=== PATIENT | male | born 1970 | race Two or more races ===

== ENCOUNTER 2023-11-12 12:50 | Emergency (ER) | payer MEDICAID ==
[~2023-11-12] VITALS: Ht 172.7 cm; Wt 84.3 kg
[2023-11-12 15:55] VITALS: BP 158/97; PULSE 108; RESP 18; TEMP 97.5; O2SAT 97
[2023-11-12] MEDS ORDERED: IBUP1TAB5 PO (16:10)
[2023-11-12] MEDS ORDERED: CEPH500C PO (16:10)
[2023-11-12] MEDS ORDERED: BACDST PO (16:10)
[2023-11-12] MEDS: cefTRIAXone SOD 1,000 MG VL IM ONE (16:46)
[2023-11-12] MEDS: KETOROLAC TROMETH 60MG/2ML VIAL IM ONE (16:46)
== END 2023-11-12 17:10 | disposition home or self-care (01) ==
LOC: ER 12:50
DX: S70.362A Insect bite (nonvenomous), left thigh, initial encounter (principal); Z79.899 Other long term (current) drug therapy; W57.XXXA Bitten or stung by nonvenomous insect and other nonvenomous arthropods, initial encounter; Y93.89 Activity, other specified; Y92.89 Other specified places as the place of occurrence of the external cause; Y99.8 Other external cause status
CPT/HCPCS: 96372; 99284; J0696; J1885